=== PATIENT | female | born 1990 | race Two or more races ===

== ENCOUNTER → 2022-04-05 | Outpatient (CLI) | payer BC ==
[2022-04-05 13:13] LABS: BASO # 0.1 10^3/uL (0.0-0.2); EOS # 0.2 10^3/uL (0.0-0.5); EOS % 3.4 % (0.0-3.0); HEMATOCRIT 40.6 % (36.0-47.0); HEMOGLOBIN 12.8 g/dl (12.0-15.5); LYMPH # 2.5 10^3/uL (1.5-5.0); MEAN CORPUSCULAR HEMOGLOBIN 28.5 pg (27.0-33.0); MEAN CORPUSCULAR HGB CONC 31.5 g/dl (32.0-36.5); MEAN CORPUSCULAR VOLUME 90.4 fl (80.0-96.0); MONO # 0.5 10^3/uL (0.0-0.8); MONO % 7.7 % (2.0-8.0); NEUTROPHILS % 47.7 % (36.0-66.0); PLATELET COUNT, AUTOMATED 193 10^3/uL (150-450); RED BLOOD COUNT 4.49 10^6/uL (4.00-5.40); WHITE BLOOD COUNT 6.2 10^3/uL (4.0-10.0)
[2022-04-05 13:50] LABS: ALBUMIN 3.9 GM/DL (3.2-5.2); ALT/SGPT 17 U/L (12-78); BILIRUBIN,TOTAL 0.2 MG/DL (0.2-1.0); BLOOD UREA NITROGEN 10 MG/DL (7-18); CALCIUM LEVEL 8.6 MG/DL (8.5-10.1); CARBON DIOXIDE LEVEL 27 MEQ/L (21-32); CHLORIDE LEVEL 108 MEQ/L (98-107); CHOLESTEROL LEVEL 161 MG/DL (<200); CHOLESTEROL RISK RATIO 3.285 (<5); CREATININE FOR GFR 0.64 MG/DL (0.55-1.30); GLOMERULAR FILTRATION RATE > 60.0 (>60); GLUCOSE, FASTING 87 MG/DL (70-100); HDL CHOLESTEROL 49 MG/DL (>40); LDL CHOLESTEROL 93 MG/DL (<100); NON-HDL-C 112 MG/DL; POTASSIUM SERUM 4.2 MEQ/L (3.5-5.1); SODIUM LEVEL 139 MEQ/L (136-145); TOTAL PROTEIN 7.6 GM/DL (6.4-8.2); TRIGLYCERIDES LEVEL 93 MG/DL (<150)
== END ==
LOC: M PLALAB 09:20
PROVIDERS: ATTEND Physician Assistant
DX: Z00.00 Encounter for general adult medical examination without abnormal findings (principal); Z13.220 Encounter for screening for lipoid disorders; Z13.29 Encounter for screening for other suspected endocrine disorder

== ENCOUNTER → 2022-08-11 | Outpatient (REF) | payer BC | LOC: M SFHCWAGY 17:02 | PROVIDERS: ATTEND Nurse Practitioner Family | DX: Z12.4 Encounter for screening for malignant neoplasm of cervix (principal) | CPT/HCPCS: 87624; G0123 ==

== ENCOUNTER → 2022-09-06 | Outpatient (REF) | payer BC | LOC: M SFHCDERM 13:47 | PROVIDERS: ATTEND Physician Assistant | DX: I78.1 Nevus, non-neoplastic (principal) ==

== ENCOUNTER → 2022-12-15 | Outpatient (REF) | payer BC ==
[2022-12-15 19:52] LABS: GC DNA AMPLIFICATION NEGATIVE (NEGATIVE)
== END ==
LOC: M PLALAB 15:22
PROVIDERS: ATTEND Advanced Practice Midwife
DX: Z34.81 Encounter for supervision of other normal pregnancy, first trimester (principal)

== ENCOUNTER → 2022-12-29 | Outpatient (CLI) | payer BC ==
[2022-12-29 16:03] LABS: HEMATOCRIT 36.9 % (36.0-47.0); HEMOGLOBIN 12.3 g/dl (12.0-15.5); MEAN CORPUSCULAR HGB CONC 33.3 g/dl (32.0-36.5); PLATELET COUNT, AUTOMATED 214 10^3/uL (150-450); RED BLOOD COUNT 4.24 10^6/uL (4.00-5.40); WHITE BLOOD COUNT 9.5 10^3/uL (4.0-10.0)
[2022-12-29 17:30] LABS: HIV 1&2 SCREEN NEGATIVE (NEGATIVE)
== END ==
LOC: M PLALAB 14:14
PROVIDERS: ATTEND Advanced Practice Midwife
DX: Z36.9 Encounter for antenatal screening, unspecified (principal)

== ENCOUNTER → 2023-03-04 | Outpatient (CLI) | payer BC | LOC: M WHC 10:19 | PROVIDERS: ATTEND Obstetrics & Gynecology | DX: O44.22 Partial placenta previa NOS or without hemorrhage, second trimester (principal); Z3A.20 20 weeks gestation of pregnancy ==

== ENCOUNTER → 2023-03-25 | Outpatient (CLI) | payer BC | LOC: M WHC 08:09 | PROVIDERS: ATTEND Specialist | DX: Z34.82 Encounter for supervision of other normal pregnancy, second trimester (principal) ==

== ENCOUNTER → 2023-04-28 | Outpatient (CLI) | payer BC ==
[2023-04-28 11:48] LABS: HEMATOCRIT 37.2 % (36.0-47.0); HEMOGLOBIN 12.1 g/dl (12.0-15.5); MEAN CORPUSCULAR HEMOGLOBIN 29.1 pg (27.0-33.0); MEAN CORPUSCULAR HGB CONC 32.5 g/dl (32.0-36.5); MEAN CORPUSCULAR VOLUME 89.4 fl (80.0-96.0); PLATELET COUNT, AUTOMATED 181 10^3/uL (150-450); RED BLOOD COUNT 4.16 10^6/uL (4.00-5.40); WHITE BLOOD COUNT 10.4 10^3/uL (4.0-10.0)
== END ==
LOC: M PLALAB 07:23
PROVIDERS: ATTEND Advanced Practice Midwife
DX: O44.02 Complete placenta previa NOS or without hemorrhage, second trimester (principal); Z3A.00 Weeks of gestation of pregnancy not specified

== ENCOUNTER → 2023-06-22 | Outpatient (REF) | payer BC | LOC: M PLALAB 10:38 | PROVIDERS: ATTEND Obstetrics & Gynecology | DX: Z34.83 Encounter for supervision of other normal pregnancy, third trimester (principal) ==

== ENCOUNTER → 2023-06-29 | Outpatient (REF) | payer BC | LOC: M PLALAB 15:52 | PROVIDERS: ATTEND Obstetrics & Gynecology | DX: R30.0 Dysuria (principal) ==

== ENCOUNTER → 2023-07-07 | Outpatient (CLI) | payer BC | LOC: M WHC 09:33 | PROVIDERS: ATTEND Advanced Practice Midwife | DX: O09.293 Supervision of pregnancy with other poor reproductive or obstetric history, third trimester (principal); Z3A.38 38 weeks gestation of pregnancy ==

== ENCOUNTER → 2023-07-13 | Outpatient (CLI) | payer BC ==
[2023-07-13 14:39] LABS: HEMATOCRIT 38.3 % (36.0-47.0); HEMOGLOBIN 12.7 g/dl (12.0-15.5); MEAN CORPUSCULAR HEMOGLOBIN 28.9 pg (27.0-33.0); MEAN CORPUSCULAR HGB CONC 33.2 g/dl (32.0-36.5); MEAN CORPUSCULAR VOLUME 87.2 fl (80.0-96.0); PLATELET COUNT, AUTOMATED 180 10^3/uL (150-450); RED BLOOD COUNT 4.39 10^6/uL (4.00-5.40); WHITE BLOOD COUNT 8.5 10^3/uL (4.0-10.0)
[2023-07-13 15:01] LABS: TOTAL PROTEIN,RANDOM URINE 19.1 MG/DL (0.0-14.0)
[2023-07-13 15:03] LABS: URIC ACID 4.7 MG/DL (3.1-7.8)
[2023-07-13 15:05] LABS: CREATININE,RANDOM URINE 118.8 MG/DL; LDH LACTATE DEHYDROGENASE 135 U/L (120-246)
[2023-07-13 15:06] LABS: ALT/SGPT 16 U/L (7.0-40); AST/SGOT 11 U/L (<34); BILIRUBIN,TOTAL 0.2 MG/DL (0.3-1.2); GLOMERULAR FILTRATION RATE > 60.0 (>60)
== END ==
LOC: M PLALAB 11:33
PROVIDERS: ATTEND Advanced Practice Midwife
DX: O16.3 Unspecified maternal hypertension, third trimester (principal)

== ENCOUNTER 2023-07-25 11:22 | Inpatient (IN) | payer BC ==
[~2023-07-25] VITALS: Ht 165.1 cm; Wt 104.5 kg
[2023-07-25] VITALS (36 sets, daily range): BP systolic 88–147; BP diastolic 50–87
[2023-07-25] MEDS ORDERED: PRENTAB9 PO (11:45)
[2023-07-25] MEDS ORDERED: TUMS500C PO (11:46)
[2023-07-25] MEDS ORDERED: OXYTOCIN INJ 10UNITS/ML 1ML VIAL IM PRN (12:05)
[2023-07-25] MEDS ORDERED: METHYLERGONOVINE MALEATE 0.2MG/ML 1ML VIAL IM PRN (12:05)
[2023-07-25] MEDS ORDERED: OXYTOCIN DRIP 30 UNITS in IV 1 EA IV PRN (12:05)
[2023-07-25] MEDS ORDERED: TRANEXAMIC ACID INJection 1,000 MG in NS 100 ML IV PRN (12:05)
[2023-07-25] MEDS ORDERED: LIDOCAINE 1% MDV 20ML VIAL INFIL PRN (12:05)
[2023-07-25] MEDS ORDERED: CARBOPROST TROMETHAMINE 250 MCG/ML AMP IM PRN (12:05)
[2023-07-25 12:31] LABS: HEMATOCRIT 39.6 % (36.0-47.0); HEMOGLOBIN 13.3 g/dl (12.0-15.5); MEAN CORPUSCULAR HEMOGLOBIN 29.1 pg (27.0-33.0); MEAN CORPUSCULAR HGB CONC 33.6 g/dl (32.0-36.5); MEAN CORPUSCULAR VOLUME 86.7 fl (80.0-96.0); PLATELET COUNT, AUTOMATED 190 10^3/uL (150-450); RED BLOOD COUNT 4.57 10^6/uL (4.00-5.40); WHITE BLOOD COUNT 8.8 10^3/uL (4.0-10.0)
[2023-07-25 12:52] LABS: URIC ACID 4.9 MG/DL (3.1-7.8)
[2023-07-25 12:54] LABS: LDH LACTATE DEHYDROGENASE 141 U/L (120-246)
[2023-07-25 12:55] LABS: ALT/SGPT 19 U/L (7.0-40); AST/SGOT 14 U/L (<34); BILIRUBIN,TOTAL 0.3 MG/DL (0.3-1.2); CREATININE FOR GFR 0.48 MG/DL (0.55-1.30); GLOMERULAR FILTRATION RATE > 60.0 (>60)
[2023-07-25] MEDS: OXYTOCIN DRIP 30 UNITS in IV 1 EA IV SCH (13:25)
[2023-07-25] MEDS: LR 1,000 ML IV SCH (13:25)
[2023-07-25 13:40] LABS: TOTAL PROTEIN,RANDOM URINE 16.6 MG/DL (0.0-14.0)
[2023-07-25 13:45] LABS: CREATININE,RANDOM URINE 115.4 MG/DL
[2023-07-25] MEDS ORDERED: LR 500 ML IV PRN (20:55)
[2023-07-25] MEDS ORDERED: NALOXONE INJ 0.4MG/1ML VIAL IV PRN (20:55)
[2023-07-25] MEDS ORDERED: EPIDURAL/PCA KEYS XX PRN (20:55)
[2023-07-25] MEDS: FENTANYL/ROPIVACAINE/NACL BAG 100 ML EPIDURAL SCH (21:05)
[2023-07-25] MEDS: CALCIUM CARBONATE 500 MG CHEW U/D PO PRN (22:13)
[2023-07-25] MEDS: LACTATED RINGER'S 1000 ML IV STA (22:15)
[2023-07-25] MEDS: ePHEDrine SULFATE 25 MG/5 ML(5MG/ML) SYRINGE IVP PRN (23:48)
[2023-07-26] VITALS (10 sets, daily range): BP systolic 89–119; BP diastolic 48–66; TEMP 97; O2SAT 97–99
[2023-07-26] MEDS: ONDANSETRON 4MG 2ML VIAL IV PRN ×2 (03:42→08:23)
[2023-07-26] MEDS ORDERED: MORPHINE PRES-FREE INJ 10 MG/10 ML VIAL As Ordered ONE (04:52)
[2023-07-26] MEDS ORDERED: OXYTOCIN 30UNITS IN 0.9% NaCl 500ML IV BAG As Ordered ONE (04:55)
[2023-07-26] MEDS ORDERED: OXYTOCIN INJ 10UNITS/ML 1ML VIAL As Ordered ONE (04:57)
[2023-07-26] MEDS ORDERED: ONDANSETRON 4MG 2ML VIAL As Ordered ONE (04:58)
[2023-07-26] MEDS: AZITHROMYCIN INJ 500 MG, VIAL MATE ADAPTER 1 EACH in NS 250 ML IV ONE (05:04)
[2023-07-26] MEDS: BICITRA 30ML SOLN UDC PO ONE (05:04)
[2023-07-26] MEDS: ceFAZolin SOD 2 GM in IV 1 EA IV ONE (05:08)
[2023-07-26] MEDS ORDERED: PHENYLephrine 500MCG 5ML (100MCG/ML) SYRINGE As Ordered ONE (05:39)
[2023-07-26] MEDS ORDERED: ePHEDrine SULFATE 25 MG/5 ML(5MG/ML) SYRINGE As Ordered ONE (05:39)
[2023-07-26] MEDS ORDERED: KETOROLAC 60MG 2ML VIAL As Ordered ONE (05:43)
[2023-07-26] MEDS ORDERED: ACETAMINOPHEN 1000MG 100ML IV BAG As Ordered ONE (05:43)
[2023-07-26 06:00] LABS: CORD GAS ABE V -5.8; CORD GAS HCO3 V 21.4 MMOL/L; CORD GAS PH V 7.268 UNITS; CORD GAS PO2 V 20.2 mmHg; CORD GAS SBC V 18.5 MMOL/L; CORD GAS TCO2 V 22.9 MMOL/L
[2023-07-26 06:02] LABS: CORD GAS ABE A -4.7; CORD GAS HCO3 A 23.9 MMOL/L; CORD GAS O2 SAT A 19.6 %; CORD GAS PCO2 A 58.5 mmHg; CORD GAS PH A 7.23 UNITS; CORD GAS PO2 A 12.7 mmHg; CORD GAS SBC A 18.7 MMOL/L; CORD GAS TCO2 A 25.7 MMOL/L
[2023-07-26] MEDS ORDERED: RHOGAM 300MCG (1500IU) INJ IM SCH (06:40)
[2023-07-26] MEDS ORDERED: ANUSOL HC CREAM 30GM TOP PRN (06:40)
[2023-07-26] MEDS ORDERED: PERCOCET 5MG/325MG TAB PO PRN ×2 (06:40)
[2023-07-26] MEDS ORDERED: MORPHINE 4 MG/ML 1ML VIAL IV PRN (06:40)
[2023-07-26] MEDS ORDERED: SIMETHICONE 80MG CHEW TAB PO PRN (06:40)
[2023-07-26] MEDS ORDERED: COLA100C5 PO (06:58)
[2023-07-26] MEDS ORDERED: PERCOCET PO (06:58)
[2023-07-26] MEDS ORDERED: IBUP80TA PO (06:58)
[2023-07-26] MEDS ORDERED: diphenhydrAMINE 50MG/ML VIAL IV PRN (07:05)
[2023-07-26] MEDS ORDERED: **NOTE PATIENT COMMENT** MISC XX SCH (07:05)
[2023-07-26] MEDS ORDERED: NALOXONE INJ 0.4MG/1ML VIAL IV PRN ×2 (07:05)
[2023-07-26] MEDS ORDERED: fentaNYL 100 MCG/2 ML INJECTION IV PRN (07:05)
[2023-07-26] MEDS: SLF 3 ML SYR IV SCH (07:05)
[2023-07-26] MEDS ORDERED: oxyCODONE 5MG TAB PO PRN (07:05)
[2023-07-26] MEDS: LR 1,000 ML IV SCH ×2 (07:05→07:38)
[2023-07-26] MEDS ORDERED: METOCLOPRAMIDE INJ 10MG/2ML VIAL As Ordered ONE (07:32)
[2023-07-26] MEDS: METOCLOPRAMIDE INJ 10MG/2ML VIAL IV PRN (07:34)
[2023-07-26] MEDS: OXYTOCIN DRIP 30 UNITS in IV 1 EA IV SCH (07:39)
[2023-07-26] MEDS: DOCUSATE SODIUM 100MG CAPSULE PO SCH (09:00)
[2023-07-26] MEDS: PRENATAL VITAMINS CHEWABLE TABLET PO SCH (09:00)
[2023-07-26] MEDS: KETOROLAC 30 MG/ML 1ML VIAL IV SCH (12:10)
[2023-07-26] MEDS: diphenhydrAMINE 50MG/ML VIAL IV PRN (23:56)
[2023-07-26] MEDS: LR 500 ML IV ONE (23:58)
[2023-07-27 02:15] VITALS: BP 111/58
[2023-07-27] MEDS: ACETAMINOPHEN 500 MG TAB PO PRN (05:05)
[2023-07-27 06:00] VITALS: BP 108/52
[2023-07-27 07:21] LABS: MEAN CORPUSCULAR HGB CONC 32.6 g/dl (32.0-36.5); MEAN CORPUSCULAR VOLUME 89.1 fl (80.0-96.0); PLATELET COUNT, AUTOMATED 147 10^3/uL (150-450); RED BLOOD COUNT 3.48 10^6/uL (4.00-5.40); WHITE BLOOD COUNT 11.6 10^3/uL (4.0-10.0)
[2023-07-27 07:25] LABS: ALBUMIN 1.6 G/DL (3.2-5.2); ALKALINE PHOSPHATASE 108 U/L (46-116); ALT/SGPT 17 U/L (7.0-40); AST/SGOT 19 U/L (<34); BILIRUBIN,TOTAL 0.2 MG/DL (0.3-1.2); BLOOD UREA NITROGEN 8 MG/DL (9-23); CALCIUM LEVEL 7.2 MG/DL (8.5-10.1); CARBON DIOXIDE LEVEL 25 MMOL/L (20-31); CHLORIDE LEVEL 109 MMOL/L (98-107); GLOMERULAR FILTRATION RATE > 60.0 (>60); GLUCOSE, FASTING 98 MG/DL (60-100); POTASSIUM SERUM 3.9 MMOL/L (3.5-5.1); SODIUM LEVEL 140 MMOL/L (136-145); TOTAL PROTEIN 4.4 G/DL (5.7-8.2)
[2023-07-27 07:28] LABS: HEMOGLOBIN 10.1 g/dl (12.0-15.5)
[2023-07-27] MEDS: IBUPROFEN 800 MG TAB PO SCH (08:11)
[2023-07-27 10:00] VITALS: BP 117/58; O2SAT 100
[2023-07-27 14:00] VITALS: BP 125/59; O2SAT 99
[2023-07-27 18:00] VITALS: BP 129/70; O2SAT 100
[2023-07-27 22:00] VITALS: BP 113/55; O2SAT 99
[2023-07-28 02:00] VITALS: BP 111/56; O2SAT 100
[2023-07-28 05:58] VITALS: BP 115/60; O2SAT 100
[2023-07-28] MEDS: MEASLES,MUMPS,RUBELLA VACCINE INJ (MMR-II) SC.IMMUN ONE (07:13)
== END 2023-07-28 14:15 | disposition home or self-care (01) | DRG 540 ==
LOC: M LDI 11:22 → M OBS 07-26 08:33
PROVIDERS: ADMIT Advanced Practice Midwife; ATTEND Advanced Practice Midwife
PROC: 3E033VJ Introduction of Other Hormone into Peripheral Vein, Percutaneous Approach (ICD-10-PCS; 2023-07-25)
PROC: 10D00Z1 Extraction of Products of Conception, Low, Open Approach (ICD-10-PCS; principal; 2023-07-26 04:57)
DX: O34.211 Maternal care for low transverse scar from previous cesarean delivery (principal); O48.0 Post-term pregnancy; Z37.0 Single live birth; Z3A.40 40 weeks gestation of pregnancy; Z88.2 Allergy status to sulfonamides; Z91.018 Allergy to other foods; Z88.8 Allergy status to other drugs, medicaments and biological substances; O76 Abnormality in fetal heart rate and rhythm complicating labor and delivery; O66.41 Failed attempted vaginal birth after previous cesarean delivery; O62.0 Primary inadequate contractions

== ENCOUNTER → 2024-08-29 | Outpatient (REF) | payer BC, OTHER ==
[~2024-08-29] MED LIST: COLA100C5 PO; IBUP80TA PO; PERCOCET PO; PRENTAB9 PO; TUMS500C PO
[2024-09-01 13:01] LABS: HPV APTIMA Not Detected (Not Detected)
== END ==
LOC: M SFHCWAGY 15:13
PROVIDERS: ATTEND Nurse Practitioner Family
DX: Z12.4 Encounter for screening for malignant neoplasm of cervix (principal)
CPT/HCPCS: 87624; G0123